=== PATIENT | female | born 1975 | race Two or more races ===

== ENCOUNTER 2019-03-24 13:39 | Emergency (ER) | payer BC, OTHER ==
[~2019-03-24] VITALS: Ht 154.9 cm; Wt 73.4 kg
[2019-03-24 13:45] VITALS: BP 126/87
--- NOTE | 2019-03-24 14:12 | NUR ---
pt in bed in gown. pt c/o pain behind left knee since april of 2018 that has progressively got worse. us in room now
[2019-03-24 14:14] LABS: BASOPHILS # (AUTO) 0.04 x10^3/uL (0-0.1); BASOPHILS % (AUTO) 0 % (0-1); EOSINOPHILS # (AUTO) 0.04 x10^3/uL (0-0.4); EOSINOPHILS % (AUTO) 0 % (1-7); LYMPHOCYTES # (AUTO) 2.89 x10^3/uL (1-3.4); LYMPHOCYTES % (AUTO) 28 % (22-44); MD NO; MEAN CORPUSCULAR HEMOGLOBIN 28.4 pg (27.0-34.8); MEAN CORPUSCULAR HGB CONC 32.8 g/dL (32.4-35.8); MEAN CORPUSCULAR VOLUME 86.7 fL (80-100); MEAN PLATELET VOLUME 7.7 fL (7.4-10.4); MONOCYTES # (AUTO) 0.57 x10^3/uL (0.2-0.8); MONOCYTES % (AUTO) 6 % (2-9); NEUTROPHILS # (AUTO) 6.93 x10^3/uL (1.8-6.8); NEUTROPHILS % (AUTO) 66 % (42-75); PLATELET COUNT 382 x10^3/uL (130-400); RED CELL DISTRIBUTION WIDTH 14.1 % (9.6-15.2)
[2019-03-24 14:24] LABS: ANION GAP 5 mmol/L (5-15); CALCIUM 9.1 mg/dL (8.5-10.1); CHLORIDE 108 mmol/L (98-107); CREATININE 0.67 mg/dL (0.55-1.02)
== END 2019-03-24 15:10 | disposition home or self-care (01) ==
LOC: ED 14:58
DX: M79.662 Pain in left lower leg (principal)
CPT/HCPCS: 36415; 80048; 82040; 85025; 93005; 99284